=== PATIENT | female | born 1960 | race Caucasian/White ===

== ENCOUNTER → 2023-03-13 | Outpatient (CLI) | payer BC ==
--- NOTE | 2023-03-13 14:52 | P.SLEEP ---
History of Present Illness H&P Date: 03/13/23 A very pleasant 62-year-old female patient, longtime CPAP user, coming in to reestablish herself regarding her obstructive sleep apnea at the [facility]. The patient was diagnosed having EMLIY approximately 20 years ago and she has been on CPAP therapy since. The last CPAP machine was given to her approximately 8- 10 years ago. Currently she has a ResMed 10 CPAP unit which is set at a pressure of 11 cm of water. I was able to retrieve her last CPAP titration and this was performed on 05/30/2010 and at that time the patient used to weigh 306 pounds and she was maintained on a CPAP pressure of 11 cm of water. She carries the same CPAP unit and the same pressures. The patient has lost weight over the years and she is currently down to 231 pounds. Her CPAP unit is functional. She is in need for new nasal mask. She has no major complaints. No snoring on CPAP therapy. Her current [place] score is down to 6. No episodes of witnessed apneas while on treatment. Denies having to wake up choking or gasping for air. She goes to bed at around 9:30 PM and she wakes up 5:30 AM in the morning. She is averaging a good 7-8 hours of sleep. She occasionally takes naps during the day. She wakes up once in the middle of the night to urinate. No sleep paralysis. No hallucinations. No cataplexy. No history of any motor vehicle accident because of feeling drowsy or sleepy. No other new complaints otherwise for now. I performed a compliancy check on the patient's machine. The patient utilizes machine every night and her compliancy is 100% pH is been averaging about 8.4 hours of CPAP use per night. Her leak is in order of 12 L/m and had AHI is down to 3 while on treatment. As such, treatment has remained quite successful. Review of Systems Constitutional: Reports weight loss Eyes: denies as per HPI, denies blurred vision, denies bulging eye, denies decreased vision, denies diplopia, denies discharge, denies dry eye, denies irritation, denies itching, denies pain, denies photophobia, denies loss of per ipheral vision, denies loss of vision, denies tunnel vision/blind spots Ears: deny: decreased hearing, ear discharge, earache, tinnitus Ears, nose, mouth and throat: Reports as per HPI Breasts: absent: as per HPI, change in shape, gynecomastia, masses, nipple discharge, pain, skin changes, swelling Cardiovascular: Reports as per HPI Respiratory: Reports sleep apnea Gastrointestinal: Reports as per HPI Menstruation: Reports as per HPI Musculoskeletal: Reports as per HPI Musculoskeletal: absent: ankle pain, ankle stiffness, ankle swelling, as per HPI, elbow pain, elbow stiffness, elbow swelling, foot pain, foot stiffness, foot swelling, hand pain, hand stiffness, hand swelling, hip pain, hip stiffness, hip swelling, knee pain, knee stiffness, knee swelling, shoulder pain, shoulder stiffness, shoulder swelling, wrist pain, wrist stiffness, wrist swelling Integumentary: Reports as per HPI Neurological: Reports as per HPI Psychiatric: Reports as per HPI Endocrine: Reports as per HPI Hematologic/Lymphatic: Reports as per HPI Allergic/Immunologic: Reports as per HPI Past Medical History Past Medical History: Diabetes Mellitus, Hypertension, Sleep Apnea/CPAP/BIPAP Past Surgical History: Orthopedic Surgery (Carpal tunnel release) Medications and Allergies Home Medications and Allergies Comment(s): Metformin 1 g twice a day, Crestor 10 mg by mouth daily, glipizide 5 mg by mouth daily, jardiance 10 mg by mouth daily,,Trulicity 3 mg once a week, lisinopril 20 mg by mouth daily and she is also on coenzyme Q, vitamin B12, vitamin D and magnesium supplements. Physical Exam BP is 112/68, pulse 85, respirations 12, temperature is 98.1 and the patient has an [place] score of 6. BMI 33.1 The patient appeared well nourished and normally developed. Vital signs as documented. Head exam is unremarkable. No scleral icterus or corneal arcus noted. Neck is without jugular venous distension, thyromegaly, or carotid bruits. Carotid upstrokes are brisk bilaterally. Lungs are clear to auscultation and percussion. Cardiac exam reveals the PMI to be normally sized and situated. Rhythm is regular. First and second heart sounds normal. No murmurs, rubs or gallops. Abdominal exam reveals normal bowel sounds, no masses, no organomegaly and no aortic enlargement. Extremities are nonedematous and both femoral and pedal pulses are normal.Examination of the skin revealed no evidence of significant rashes, suspicious appearing nevi or other concerning lesions.Neuro logically, the patient is awake and alert and the patient does not have any focal neurological deficit. Cranial nerves are essentially intact. Assessment and Plan Plan: Obstructive sleep apnea diagnosed more than 20 years ago and the patient continued to receive successful CPAP therapy at a pressure of 11 cm of water. A compliancy check was done. The CPAP machine was also checked. She has a functioning CPAP unit. 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
== END ==
LOC: SLEEP 13:52
PROVIDERS: ATTEND Internal Medicine Critical Care Medicine
DX: G47.33 Obstructive sleep apnea (adult) (pediatric) (principal); Z99.89 Dependence on other enabling machines and devices; E66.9 Obesity, unspecified; Z68.33 Body mass index [BMI] 33.0-33.9, adult; E11.9 Type 2 diabetes mellitus without complications; I10 Essential (primary) hypertension
CPT/HCPCS: 99202